=== PATIENT | male | born 1965 | race Caucasian/White ===

== ENCOUNTER 2023-12-17 06:49 | Emergency (ER) | payer MEDICARE, MEDICAID, SELFPAY ==
[2023-12-17 06:52] VITALS: BP 145/86
[2023-12-17 06:59] VITALS: BP 137/88
[2023-12-17 07:00] VITALS: BP 137/88
[2023-12-17 07:08] VITALS: BMI 23.3
--- NOTE | 2023-12-17 07:52 | ED.GENMED ---
History of Present Illness
General
Chief Complaint: Musculo-Skeletal Complaint
Source: patient and other (Transfer sheet from prison)
Exam Limitations: none
Time Seen by Provider: 12/17/23 07:12
Nursing documentation reviewed up to this point in time: agreed with
Travel History
Have you had any contact with someone who has COVID-19?: No
Do you have any symptoms of coronavirus? Fever > 100 degrees, chills, cough, shortness of breath, sore throat, loss of taste or smell, muscle aches, or headache?: No
History of Present Illness
History of Present Illness:
The patient is a 58-year-old man with a past medical history of mental retardation who resides in a prison but was visiting at his parents' house last night. According to his mother, he was walking down wooden steps wearing socks and likely
tripped and fell down the last step. Mom reports she did not see the fall but does not believe he hit his head. There was no loss of consciousness. She reports he seems absolutely fine but hours later seemed to be limping. She reports he is not
a complainer but she felt he seemed to have pain near his right foot or ankle. She reports he was previously well. She denies any other complaints. The patient denies headache. He reports he did not hit his head. He denies neck pain and back
pain. He denies all pain. He is smiling and laughing and looks well.
Past History
Past History
ED Past Medical History: HTN, Hypercholesterolemia and Other (Mental retardation)
ED Past Surgical History: Other
Social History
Tobacco: Non-smoker
Alcohol: None
Drug: None
Personal: Single
Living: other
Employment: Not employed
Family History
Family History: Other
Review of Systems
Review of Systems
Allergies reviewed?: Yes
All Other Systems: ROS reviewed and negative except as documented in HPI and ROS
Constitutional: Reports no symptoms
EENT: Reports no symptoms
Respiratory: Reports no symptoms
Cardiac: Reports no symptoms
ABD/GI: Reports no symptoms
: Reports no symptoms
Musculoskeletal: Reports joint pain
Skin: Reports no symptoms
Neurological: Reports no symptoms
Endocrine: Reports no symptoms
Hematologic/Lymphatic: Reports no symptoms
Psychiatric: Reports no symptoms
Phy Exam
Physical Exam
Physical Exam:
Physical Exam
General: no apparent distress, not acutely ill. Patient is smiling, conversational. Atraumatic appearing face and head. No ecchymoses on face or head. No scalp contusion. Nontender scalp.
Neck: supple. no meningeal signs. Nontender C-spine
Heart: s1/s2 regular rate and rhythm, no murmur. equal radial pulses. No chest wall tenderness
Lungs: no acute respiratory distress. clear bilaterally. No vertebral spine tenderness
Abdomen: Soft, nontender
Neuro: alert and focal. 5 out of 5 strength in all extremities.
Skin: no rash, no ecchymoses on chest, abdomen or back
Psychiatric: well kept. interactive and cooperative
Extremities: Full range of movement of upper and lower extremities. No soft tissue tenderness or bony tenderness of upper or lower extremities. When walking the patient, he has a mild limp but is able to walk around steadily.
Course
Orders/Labs/Results
Orders:
Orders
12/17/23 07:37
Ankle, Right 3 view CR [CR Ankle - Right Min 3 Views *] Urgent
Comment:
Reason For Exam: twisted ankle
12/17/23 08:31
Ankle, left 3 view CR [CR Ankle - Left Min 3 Views ] Urgent
Comment:
Reason For Exam: limping, fall
12/17/23 08:32
CR Hips REUBEN w/wo Pel 3-4 Vw Urgent
Reason For Exam: fall
Include a pelvis x-ray?: Yes
Vital Signs
Initial and Last Documented VS:
Initial Vital Signs
BP
145/86
12/17/23 06:52
Last Documented Vital Signs
Temp Pulse Resp BP Pulse Ox
97.7 F 103 20 135/105 96
12/17/23 06:59 12/17/23 08:15 12/17/23 08:15 12/17/23 08:05 12/17/23 08:05
MDM/Problems Addressed
Differential Diagnosis Includes:
Right ankle sprain, right ankle fracture, right hip fracture
MDM/Problems Addressed:
Patient presents with acute right ankle pain after a fall
Chronic conditions affecting care:
Given patient's history of mental retardation, it is difficult to get a full history
Acute Exacerbation and/or Progression of Chronic Illness:
Patient is acutely hypertensive, however, it is mild and likely more due to anxiety being in the ED
Acute Exacerbation and/or Progression of Chronic Illness: HTN
*Radiology
Radiology exam reviewed: preliminary read by ED provider (Right ankle reviewed by me. No acute fracture. Left ankle, bilateral hip and pelvic x-ray reviewed by me. No bony injury) and radiology read reviewed
*Pulse Oximetry
Patient hypoxic: no
*EKG
Interpreted by ED Provider?: NA
*Heavy Mobile Equipment Repairer Interpretation
Rate: Heavy Mobile Equipment Repairer- N/A
*Critical Care Note
Total Time (30-74mins, 75-104mins- exclusive of procedures): Not Applicable
Data Reviewed
Review of Other/Old Records Reveals: Other (Transfer sheet from prison)
Source: patient
Patient Management
Social determinants of health affecting care: Living situation and Strong social support
Escalation/DeEscalation of care consider admission/obs:
Patient looks extremely well and comfortable. There is no evidence of head or face trauma. His neck is completely nontender to the touch. His abdomen is soft and nontender. I suspect that this was a trip and fall, as his mother suggested.
Patient is smiling, laughing and conversational. I do not feel that we need to do emergent blood work due to normal vital signs and the fact that he looks so well and comfortable and both he and mom have no other complaints.
ED Attending Note
-
Portions of this chart may have been created with voice recognition software.� Occasional wrong word or��sound alike� substitutions may have occurred due to the inherent limitations of voice recognition software.
Discharge Plan
Departure
Patient Disposition: Home (Routine Discharge)
Date of Disposition: 12/17/23
Time of Disposition: 10:09
Patient with high blood pressure during this ER visit?: Yes
Condition: Good
Covid-19: Not Applicable
Discharge Problem:
Left ankle sprain
Instructions: Ankle Sprain ED, BLOOD PRESSURE
Referrals:
James Lamar, DO [Family Provider] -
Activity Restrictions/Additional Instructions:
Take 600 mg of Advil with food every 6-8 hours for pain. Vincent's left and right ankles were x-rayed, as well as both of his hips and pelvis. There is no sign of fracture/break
Interventions
Interventions:
*Risk Screen - Suicide Last Done: 12/17/23 06:59
*General Assessment Last Done: 12/17/23 06:59
*Neglect/Abuse Screening Last Done: 12/17/23 06:59
ED- Fall Risk Assessment Last Done: 12/17/23 09:19
ED-Musculoskeletal Assessment Last Done: 12/17/23 07:10
Discharge Date and Time
Print Language: [place]
[2023-12-17 08:05] VITALS: BP 135/105
[2023-12-17 12:09] VITALS: BP 135/88
== END 2023-12-17 12:18 | disposition home or self-care (01) ==
LOC: EMR 06:49
PROVIDERS: EMERGENCY PHYSICIAN Emergency Medicine; FAMILY PHYSICIAN Internal Medicine
DX: S93.402A Sprain of unspecified ligament of left ankle, initial encounter (principal); W01.0XXA Fall on same level from slipping, tripping and stumbling without subsequent striking against object, initial encounter; I10 Essential (primary) hypertension; F79 Unspecified intellectual disabilities
CPT/HCPCS: 99283; 73522; 73610